=== PATIENT | male | born 1980 | race African-American/Black ===

== ENCOUNTER 2021-10-01 17:19 | Emergency (ER) | payer MEDICAID ==
[~2021-10-01] VITALS: Ht 180.3 cm; Wt 97.7 kg
[~2021-10-01 17:19] MED LIST: BACTRIM DS 8001 TAB PO; GENTAMICIN EYE D5 ML OS
[2021-10-01 17:30] VITALS: TEMP 98.6
[2021-10-01 18:18] VITALS: BP 155/79; PULSE 85
== END 2021-10-01 18:18 | disposition home or self-care (01) ==
LOC: COL.ER 17:19
DX: U07.1 COVID-19 (principal); F17.210 Nicotine dependence, cigarettes, uncomplicated

== ENCOUNTER 2023-12-19 14:10 | Emergency (ER) | payer SELFPAY ==
[~2023-12-19] VITALS: Ht 180.3 cm; Wt 86.7 kg
[2023-12-19 14:23] VITALS: BP 143/103; TEMP 98
[2023-12-19 16:08] VITALS: PULSE 78
== END 2023-12-19 16:15 | disposition home or self-care (01) ==
LOC: COL.ER 14:10
DX: S16.1XXA Strain of muscle, fascia and tendon at neck level, initial encounter (principal); S39.012A Strain of muscle, fascia and tendon of lower back, initial encounter; V49.50XA Passenger injured in collision with unspecified motor vehicles in traffic accident, initial encounter; W22.8XXA Striking against or struck by other objects, initial encounter; Y92.410 Unspecified street and highway as the place of occurrence of the external cause